=== PATIENT | female | born 1970 | race Caucasian/White ===

== ENCOUNTER → 2017-10-30 | Outpatient (CLI) | payer BC ==
--- NOTE | 2017-10-30 13:41 | RAD ---
INDICATION: NECK PAIN COMPARISON: None. TECHNIQUE: Axial CT images obtained through the cervical spine without intravenous contrast. Coronal and sagittal reformats processed. FINDINGS: No acute fracture or dislocation. No evidence of dislocation or subluxation. There is evidence of degenerative changes with some osteophyte formation at the vertebral body endplates as well as uncovertebral hypertrophy. This does cause some regions of neural foraminal stenosis including at C6-7 where there is osteophytes narrowing the bilateral neural foramina with some central canal narrowing also suspected. Degeneration is seen at other levels as well within the cervical spine at partially visualized upper thoracic spine with neural foraminal narrowing seen. IMPRESSION: Degenerative changes of the cervical spine without definite acute fracture or dislocation. PQRS Compliance Statement: One or more of the following individualized dose reduction techniques were utilized for this examination: 1. Automated exposure control 2. Adjustment of the mA and/or kV according to patient size 3. Use of iterative reconstruction technique
== END | disposition home or self-care (01) ==
LOC: CT 13:00
PROVIDERS: ATTEND Family Medicine
DX: M47.892 Other spondylosis, cervical region (principal); M25.78 Osteophyte, vertebrae
CPT/HCPCS: 72125

== ENCOUNTER → 2018-06-14 | Outpatient (CLI) | payer BC ==
[~2018-06-14] VITALS: Ht 165.1 cm; Wt 71.7 kg
[~2018-06-14] MED LIST: SINCALIDE 1.43 MCG in IV NORMAL SALINE 50ML 30 ML IV ONE
--- NOTE | 2018-06-14 11:13 | RAD ---
EXAM: Nuclear hepatobiliary scan. HISTORY: Pain. TECHNIQUE: Following intravenous administration of 5.5 mCi Tc 99m Choletec, anterior images of the abdomen were obtained at five minute intervals through one hour. Subsequently, 1.43 mcg Kinevac was administered and additional images to assess gallbladder ejection fraction were obtained. FINDINGS: There is prompt radiotracer uptake by the liver. No focal defect is seen. There is normal excretion into the biliary tree. The gallbladder is visualized within 20 minutes and there is free flow into the duodenum. The gallbladder ejection fraction is 21%. IMPRESSION: Decreased gallbladder ejection fraction of 21%. Electronically signed by: Torrie Yeager MD (06/14/2018 11:09 AM) [facility]
--- NOTE | 2018-06-14 14:40 | RAD ---
EXAM: Abdomen sonogram. HISTORY: Pain. TECHNIQUE: Sonographic imaging of the abdomen was performed. COMPARISON: None. FINDINGS: The liver is normal in size. No focal hepatic lesion is seen. There is cholelithiasis. The common bile duct is normal in caliber. The kidneys are normal in size. There is no hydronephrosis. The pancreas, spleen, aorta and inferior vena cava are unremarkable. IMPRESSION: 1. Cholelithiasis. 2. Otherwise, unremarkable abdomen sonogram. Electronically signed by: Torrie Yeager MD (06/14/2018 2:36 PM) [place] [id number]
== END | disposition home or self-care (01) ==
LOC: US 07:38
PROVIDERS: ATTEND Internal Medicine Gastroenterology
DX: K80.20 Calculus of gallbladder without cholecystitis without obstruction (principal)
CPT/HCPCS: 76700; 78226; 96374; 96375; A9537; J2805

== ENCOUNTER 2019-03-24 19:37 | Emergency (ER) | payer BC ==
[~2019-03-24] VITALS: Ht 165.1 cm; Wt 68.0 kg
[2019-03-24] MEDS ORDERED: IV NORMAL SALINE 1,000ML 1,000 ML IV SCH (21:20)
[2019-03-24] MEDS ORDERED: ONDANSETRON PF 4 MG/2 ML VIAL. IV ONE (21:30)
[2019-03-24 21:33] LABS: BASO % 1 % (0-3); EOS # 0.1 x10^3/uL (0.0-0.7); EOS % 1 % (0-3); HEMATOCRIT 39.8 % (36.0-47.0); HEMOGLOBIN 13.7 g/dL (12.0-15.5); LYMPH # 1.4 x10^3/uL (1.0-4.8); LYMPH % 17 % (24-48); MEAN CORPUSCULAR HEMOGLOBIN 29 pg (25-35); MEAN CORPUSCULAR HGB CONC 34 g/dL (31-37); MEAN CORPUSCULAR VOLUME 85 fL (79-100); MONO # 0.4 x10^3/uL (0.0-1.1); MONO % 4 % (0-9); NEUT # 6.5 x10^3uL (1.8-7.7); NEUT % 77 % (31-73); PLATELET COUNT 254 x10^3/uL (140-400); RED BLOOD COUNT 4.68 x10^6/uL (3.50-5.40); RED CELL DISTRIBUTION WIDTH 12.5 % (11.5-14.5); WHITE BLOOD COUNT 8.5 x10^3/uL (4.0-11.0)
[2019-03-24 21:35] VITALS: BP 130/85
[2019-03-24 21:45] LABS: ALBUMIN 4.4 g/dL (3.4-5.0); ALBUMIN/GLOBULIN RATIO 1.3 (1.0-1.7); CALCIUM 9.4 mg/dL (8.5-10.1); CREATININE 0.8 mg/dL (0.6-1.0); GFR 77.2; POTASSIUM 3.6 mmol/L (3.5-5.1); TOTAL BILIRUBIN 0.6 mg/dL (0.2-1.0); TOTAL PROTEIN 7.9 g/dL (6.4-8.2)
[2019-03-24] MEDS ORDERED: IOHEXOL 300 MG/ML 75 ML VIAL. IV ONE (21:45)
[2019-03-24 22:14] LABS: BILIRUBIN,URINE NEG (NEG); CLARITY,URINE HAZY; COLOR,URINE YELLOW; GLUCOSE,URINE NEG (NEG)
[2019-03-24 22:15] LABS: AMORPHOUS SEDIMENT,UR PRESENT /HPF; BACTERIA,URINE 0 /HPF (0-FEW); NITRITE,URINE NEG (NEG); RBC,URINE OCC /HPF (0-2); SQUAMOUS EPITHELIAL CELL,UR OCC /LPF; UROBILINOGEN,URINE 1 mg/dL (0.2 mg/dL)
--- NOTE | 2019-03-24 22:32 | RAD ---
CT scan of the abdomen and pelvis with contrast 03/24/2019 CLINICAL HISTORY: Epigastric pain for 3 hours. TECHNIQUE: After the intravenous administration 75 cc of Omnipaque 300, contiguous, 5 mm axial sections were obtained through the abdomen and pelvis. One or more of the following individualized dose reduction techniques were utilized for this study: 1. Automated exposure control. 2. Adjustment of the mA and/or kV according to patient size. 3. Use of iterative reconstruction technique. FINDINGS: Comparison is made to an ultrasound of the abdomen dated 06/14/2018. Images through the lung bases are within normal limits. The liver, spleen, pancreas, adrenal glands and right kidney are within normal limits. A 1 cm low-attenuation lesion is seen involving the midpole of the left kidney which likely represents a cyst. The abdominal aorta tapers normally. Surgical clips are seen within the gallbladder fossa consistent with a cholecystectomy. No free fluid or free air is seen within the abdomen. There is no evidence of bowel obstruction. Air and stool is seen throughout the colon. The appendix is well-visualized and is within normal limits. Images through the pelvis demonstrate the urinary bladder to be contracted. No adnexal mass is seen. No free fluid is noted. IMPRESSION: No acute abnormality is seen. Electronically signed by: Jurgen Xiao MD (03/24/2019 10:29 PM) [facility]
[2019-03-24] MEDS ORDERED: DICY20TA3 PO (23:02)
--- NOTE | 2019-03-24 23:02 | PHYS DOC ---
Past History Past Medical History: GERD Past Surgical History: Cholecystectomy Alcohol Use: None Drug Use: None Adult General Chief Complaint Chief Complaint: ABDOMINAL PAIN HPI HPI Patient is a 48 year old female who presents with complaint of sudden onset left-sided abdominal pain. Patient states that her pain started shortly prior to arrival. States that while at rest she got sudden sharp severe cramping pain along the left side of her abdomen. States that this persisted into her visit in the emergency department. Since being in the emergency department, she states that her pain is improving on its own. Did not take any medications for her symptoms. Denies previous history of similar symptoms. States that she has had history of diverticulitis in the past but states her symptoms do not feel similar to her previous episode. Had associated nausea and vomiting. Denies fevers or loose stools. Review of Systems Review of Systems Constitutional: Denies fever or chills [] Eyes: Denies change in visual acuity, redness, or eye pain [] HENT: Denies nasal congestion or sore throat [] Respiratory: Denies cough or shortness of breath [] Cardiovascular: Denies chest pain or edema[] GI: Abdominal pain, nausea, vomiting, denies bloody stools or diarrhea [] : Denies dysuria or hematuria [] Musculoskeletal: Denies back pain or joint pain [] Integument: Denies rash or skin lesions [] Neurologic: Denies headache, focal weakness or sensory changes [] All other systems were reviewed and found to be within normal limits, except as documented in this note. Current Medications Current Medications Current Medications Medications (Trade) Dose Ordered Sig/Leodan Start Time Stop Time Status Last Admin Dose Admin Iohexol (Omnipaque 300 Mg/ml) 75 ml 1X ONCE 03/24/19 21:45 03/24/19 21:53 DC 03/24/19 22:03 75 ML Ondansetron HCl (Zofran) 4 mg 1X ONCE 03/24/19 21:30 03/24/19 21:31 DC 03/24/19 21:27 4 MG Sodium Chloride 1,000 ml @ 1,000 mls/hr Q1H 03/24/19 21:20 03/24/19 22:19 DC 03/24/19 21:26 1,000 MLS/HR Allergies Allergies Allergies Coded Allergies Type Severity Reaction Last Updated Verified No Known Drug Allergies 06/14/18 No Physical Exam Physical Exam Constitutional: Alert, afebrile, appears in [id number] discomfort. [] HENT: Normocephalic, atraumatic, bilateral external ears normal, oropharynx moist, no oral exudates, nose normal. [] Eyes: PERRLA, EOMI, conjunctiva normal, no discharge. [] Neck: Normal range of motion, no tenderness, supple, no stridor. [] Cardiovascular:Heart rate regular rhythm, no murmur [] Lungs & Thorax: Bilateral breath sounds clear to auscultation [] Abdomen: Bowel sounds normal, soft, left upper and lower quadrant tenderness to palpation, no guarding or rebound tenderness, no masses, no pulsatile masses. [] Skin: Warm, dry, no erythema, no rash. [] Back: No tenderness, no CVA tenderness. [] Extremities: No tenderness, no cyanosis, no clubbing, ROM intact, no edema. [] Neurologic: Alert and oriented X 3, normal motor function, normal sensory function, no focal deficits noted. [] Current Patient Data Vital Signs Vital Signs Date Time Temp Pulse Resp B/P (MAP) Pulse Ox O2 Delivery O2 Flow Rate FiO2 03/24/19 21:35 76 16 130/85 (100) 99 Room Air 03/24/19 19:56 97.8 Lab Results Laboratory Tests Test 03/24/19 20:23 03/24/19 21:50 White Blood Count 8.5 x10^3/uL (4.0-11.0) Red Blood Count 4.68 x10^6/uL (3.50-5.40) Hemoglobin 13.7 g/dL (12.0-15.5) Hematocrit 39.8 % (36.0-47.0) Mean Corpuscular Volume 85 fL (79-100) Mean Corpuscular Hemoglobin 29 pg (25-35) Mean Corpuscular Hemoglobin Concent 34 g/dL (31-37) Red Cell Distribution Width 12.5 % (11.5-14.5) Platelet Count 254 x10^3/uL (140-400) Neutrophils (%) (Auto) 77 % (31-73) H Lymphocytes (%) (Auto) 17 % (24-48) L Monocytes (%) (Auto) 4 % (0-9) Eosinophils (%) (Auto) 1 % (0-3) Basophils (%) (Auto) 1 % (0-3) Neutrophils # (Auto) 6.5 x10^3uL (1.8-7.7) Lymphocytes # (Auto) 1.4 x10^3/uL (1.0-4.8) Monocytes # (Auto) 0.4 x10^3/uL (0.0-1.1) Eosinophils # (Auto) 0.1 x10^3/uL (0.0-0.7) Basophils # (Auto) 0.0 x10^3/uL (0.0-0.2) Sodium Level 141 mmol/L (136-145) Potassium Level 3.6 mmol/L (3.5-5.1) Chloride Level 102 mmol/L (98-107) Carbon Dioxide Level 29 mmol/L (21-32) Anion Gap 10 (6-14) Blood Urea Nitrogen 27 mg/dL (7-20) H Creatinine 0.8 mg/dL (0.6-1.0) Estimated GFR (Cockcroft-Gault) 77.2 BUN/Creatinine Ratio 34 (6-20) H Glucose Level 97 mg/dL (70-99) Calcium Level 9.4 mg/dL (8.5-10.1) Total Bilirubin 0.6 mg/dL (0.2-1.0) Aspartate Amino Transferase (AST) 329 U/L (15-37) H Alanine Aminotransferase (ALT) 215 U/L (14-59) H Alkaline Phosphatase 99 U/L (46-116) Total Protein 7.9 g/dL (6.4-8.2) Albumin 4.4 g/dL (3.4-5.0) Albumin/Globulin Ratio 1.3 (1.0-1.7) Lipase 289 U/L (73-393) Urine Collection Type Unknown Urine Color Yellow Urine Clarity Hazy Urine pH 7.0 Urine Specific [place] 1.020 Urine Protein Neg (NEG-TRACE) Urine Glucose (UA) Neg mg/dL (NEG) Urine Ketones (Stick) 15 mg/dL (NEG) Urine Blood Trace (NEG) Urine Nitrite Neg (NEG) Urine Bilirubin Neg (NEG) Urine Urobilinogen Dipstick 1 mg/dL (0.2 mg/dL) Urine Leukocyte Esterase Neg (NEG) Urine RBC Occ /HPF (0-2) Urine WBC 1-4 /HPF (0-4) Urine Squamous Epithelial Cells Occ /LPF Urine Amorphous Sediment Present /HPF Urine Bacteria 0 /HPF (0-FEW) Urine Mucus Slight /LPF EKG EKG Not performed[] Radiology/Procedures Radiology/Procedures [address] [address] IMAGING REPORT Signed PATIENT: ARNULFO MATTHEWS ACCOUNT: [id number] : 1970 LOCATION: ER AGE: 48 SEX: F EXAM STATUS: REG ER ORD. PHYSICIAN: FERMIN ACEVEDO MD REASON: Omni 300,75ml IV/Epigastric pain x 3 hrs/Hx elizabeth/Neg hcg PROCEDURE: CT ABD PELV W/ IV CONTRST ONLY CT scan of the abdomen and pelvis with contrast 03/24/2019 CLINICAL HISTORY: Epigastric pain for 3 hours. TECHNIQUE: After the intravenous administration 75 cc of Omnipaque 300, contiguous, 5 mm axial sections were obtained through the abdomen and pelvis. One or more of the following individualized dose reduction techniques were utilized for this study: 1. Automated exposure control. 2. Adjustment of the mA and/or kV according to patient size. 3. Use of iterative reconstruction technique. FINDINGS: Comparison is made to an ultrasound of the abdomen dated 06/14/2018. Images through the lung bases are within normal limits. The liver, spleen, pancreas, adrenal glands and right kidney are within normal limits. A 1 cm low-attenuation lesion is seen involving the midpole of the left kidney which likely represents a cyst. The abdominal aorta tapers normally. Surgical clips are seen within the gallbladder fossa consistent with a cholecystectomy. No free fluid or free air is seen within the abdomen. There is no evidence of bowel obstruction. Air and stool is seen throughout the colon. The appendix is well-visualized and is within normal limits. Images through the pelvis demonstrate the urinary bladder to be contracted. No adnexal mass is seen. No free fluid is noted. IMPRESSION: No acute abnormality is seen. Electronically signed by: Jurgen Xiao MD (03/24/2019 10:29 PM) [facility] DICTATED AND SIGNED BY: JURGEN XIAO MD DATE: 03/24/19 2229 CC: TOAN MANZANARES MD; FERMIN ACEVEDO MD ~ [] Course & Med Decision Making Course & Med Decision Making Pertinent Labs and Imaging studies reviewed. (See chart for details) Patient given IV fluids and Zofran. I offered medication for pain but declined. CT imaging shows no acute abnormality. Cause of patient's symptoms unclear at time of disposition but does not appear to be severe or surgical. Patient prescribed Bentyl. Advised follow-up with primary doctor next 4 days for reevaluation and return to the emergency department for any worsening symptoms. Patient was understanding and in agreement with treatment plan. Dragon Disclaimer Dragon Disclaimer This electronic medical record was generated, in whole or in part, using a voice recognition dictation system. Departure Departure: Impression: Primary Impression: Abdominal pain Disposition: HOME, SELF-CARE Condition: IMPROVED Referrals: TOAN MANZANARES MD (PCP) Patient Instructions: Abdominal Pain (Nonspecific) Additional Instructions: The cause of your abdominal pain today is not known but does not appear to be severe at this time. His recommended that you follow-up with your primary doctor in the next 3 days for reevaluation. Return to the emergency department for any worsening symptoms. Scripts Dicyclomine Hcl (DICYCLOMINE HCL) 20 Mg Tablet 1 TAB PO QID, #60 TAB Prov: FERMIN ACEVEDO MD 03/24/19 Problem Qualifiers Primary Impression: Abdominal pain Abdominal location: left lower quadrant Qualified Codes: R10.32 - Left lower quadrant pain FERMIN ACEVEDO MD March 24, 2019 23:02
== END 2019-03-24 23:15 | disposition home or self-care (01) ==
LOC: ER 19:37
DX: R10.32 Left lower quadrant pain (principal); R10.12 Left upper quadrant pain; R11.2 Nausea with vomiting, unspecified; K21.9 Gastro-esophageal reflux disease without esophagitis; Z90.49 Acquired absence of other specified parts of digestive tract
CPT/HCPCS: 36415; 74177; 80053; 81001; 81025; 83690; 85025; 96361; 96374; 99285; J2405; Q9967; J7030

== ENCOUNTER → 2019-11-15 | Outpatient (CLI) | payer BC ==
[~2019-11-15] MED LIST changes: +DICY20TA3 PO; -SINCALIDE 1.43 MCG in IV NORMAL SALINE 50ML 30 ML IV ONE
--- NOTE | 2019-11-15 17:17 | RAD ---
EXAM: 3 Views Right Shoulder DATE: 11/15/2019 12:00 AM INDICATION: Right shoulder pain COMPARISON: No Prior FINDINGS: There is no evidence for acute fracture or dislocation. AC joint is congruent. Minimal AC joint degenerative change. Humeral head is not high riding. IMPRESSION: 1. No acute fracture or dislocation. 2. Minimal AC joint degenerative change. Electronically signed by: Chapincito Sommer MD (11/15/2019 5:14 PM) [facility]
== END | disposition home or self-care (01) ==
LOC: DXRAD 08:49
PROVIDERS: ATTEND Family Medicine
DX: M19.011 Primary osteoarthritis, right shoulder (principal)
CPT/HCPCS: 73030